=== PATIENT | male | born 1990 | race Caucasian/White ===

== ENCOUNTER 2020-07-15 06:16 | Emergency (ER) | payer BC, SELFPAY ==
[2020-07-15 06:18] VITALS: BP 149/83; PULSE 79; RESP 16; TEMP 36.6; O2SAT 99; BMI 28.1
--- NOTE | 2020-07-15 06:43 | RAD_ITS ---
HISTORY: FEVER ON AND OFF FOR A FEW DAYS. COVID PRECAUTIONS ADDITIONAL HISTORY: None provided. EXAMINATION/TECHNIQUE: XR Chest 1 View AP/PA Number of images including paperwork: 1 COMPARISON: None FINDINGS: LUNGS AND PLEURA: No consolidation, mass or pleural effusion. CARDIAC SILHOUETTE: Unremarkable. MEDIASTINUM AND ADILENE: Unremarkable. UPPER ABDOMEN: Unremarkable. SKELETON AND SOFT TISSUES: No acute skeletal findings. OTHER DEVICES AND HARDWARE: None. RAD/Chest 1 View (Portable) IMPRESSION: No acute cardiopulmonary abnormality. at 0735 Reported and signed by: Karyn Maier MD Electronically Signed: Karyn Maier MD at 7:35 EDT Tel , Service support ,
--- NOTE | 2020-07-15 06:45 | ED.VISSUMM ---
- ER Visit Summary Date of Service: 07/15/20 Chief Complaint: Fever History of Present Illness: The patient is a 30 M who presents with intermittent fevers for the past 2 days. Patient states his temperature at home went up to 102 at times. Patient states he has been taking Tylenol and ibuprofen but he is unsure if this actually helps his fever or not. Patient did not take any Tylenol or ibuprofen this morning. Patient admits to myalgias and arthralgias. Patient also admits to some nausea but denies any vomiting. Patient denies any shortness of breath but admits to a cough. Patient denies any chest pain. Patient also admits to a mild headache. Physical Examination: Vital signs are stable. Patient is afebrile here. Patient is in no acute distress. Oral mucosa is pink and moist. Oropharynx is mildly erythematous. There are no exudates. Neck is supple. Trachea is midline. There is no JVD or lymphadenopathy. Heart was regular rate and rhythm. Lungs are clear and equal bilaterally. There is adequate respiratory effort. Abdomen is soft. Bowel sounds are normal. There is no tenderness. Cranial nerves II through XII are intact. There are no focal motor or sensory deficits. Test Results: Portable chest x-ray was obtained. There is no acute cardiopulmonary process. This was interpreted by myself and the radiologist. Rapid strep was ordered and is pending. Influenza swab was ordered and is pending. COVID swab was sent out for testing. Emergency Department Course and Treatment: Patient is afebrile here. Patient was instructed to drink plenty of fluids. Patient was instructed to continue Tylenol or ibuprofen as needed for any fevers. Patient was instructed to follow-up with his primary care physician in 5 to 7 days. Patient understood and was agreeable with the plan. All questions were answered. Disposition: Discharge home Impression: Acute febrile illness This note was generated with [employer] dictation software. It may contain incorrect words, spelling, and punctuation that were not noted in review of the chart prior to signing ED Disposition - Plan for ED Patient: Disposition: Home or Assisted Living Diagnosis: Febrile illness, acute Instructions: ED Fever Control (Adult) Referrals: [facility],Out of [NON-STAFF] - 3-5 Days
[2020-07-15 08:57] VITALS: BP 123/83; PULSE 70; RESP 16; O2SAT 97
--- NOTE | 2020-07-15 08:57 | ED.RN ---
REVIEWED D/C INSTRUCTIONS, FOLLOW UP CARE, AND S/S THAT WOULD WARRANT A RETURN TO THE ED WITH PT. PT VERBALIZED AN UNDERSTANDING AND DENIES FURTHER QUESTIONS FOR THIS RN. PT SKIN P/W/D, RESP EVEN AND UNLABORED, PT A&O X 3, NO DISTRESS NOTED. PT AMBULATED OUT OF ED, GAIT STEADY.
== END 2020-07-15 08:58 | disposition home or self-care (01) ==
PROVIDERS: Emergency Provider Emergency Medicine
DX: R50.9 Fever, unspecified (principal); Z72.0 Tobacco use
CPT/HCPCS: 71045; 87635; 87804; 87880; 94799; 99282; U0003

== ENCOUNTER → 2021-08-15 | Outpatient (CLI) | payer BC, SELFPAY | END | disposition home or self-care (01) | LOC: LABSPEC 16:37 | PROVIDERS: Visit Provider Physician Assistant Surgical | DX: U07.1 COVID-19 (principal) | CPT/HCPCS: 87635; U0003 ==